=== PATIENT | female | born 1950 | race Caucasian/White ===

== ENCOUNTER 2023-08-20 19:37 | Observation (INO) | payer OTHER ==
[2023-08-20 20:03] VITALS: RESP 18
[2023-08-20 21:01] LABS: HEMATOCRIT 35.6 % (32.4-45.2); HEMOGLOBIN 11.8 G/dL (10.7-15.3); MCH 28.5 pg (25.7-33.7); MCHC 33.3 g/dl (32.0-36.0); MEAN CELL VOLUME 85.5 fl (80-96); MEAN PLT VOLUME 8.8 fl (7.5-11.1); PLATELET COUNT 341.7 10^3/uL (134-434); RBC 4.16 10^6/uL (3.60-5.2); RDW 15.9 % (11.6-15.6); WHITE BLOOD COUNT 10.4 10^3/uL (4.0-10.8)
[2023-08-20 21:11] LABS: ALBUMIN 4.4 g/dl (3.4-5.0); BILIRUBIN,TOTAL 0.2 mg/dl (0.2-1); BLOOD UREA NITROGEN 23.7 mg/dl (7-18); CALCIUM 9.3 mg/dl (8.5-10.1); CREATININE 0.6 mg/dl (0.6-1.3); PHOSPHOROUS 3.73 (2.5-4.9); POTASSIUM 3.9 mmol/L (3.5-5.1); SGOT/AST 15.2 U/L (15-37); TOT PROT 7.4 g/dl (6.4-8.2)
[2023-08-20] MEDS ORDERED: ASPIRIN 325 MG TABLET ONE (23:23)
[2023-08-20] MEDS ORDERED: ASPIRIN 81 MG CHEWABLE TABLETS PO ONE (23:24)
[2023-08-21 04:59] VITALS: BMI 31.7
[2023-08-21] MEDS ORDERED: ATORVASTATIN CA 80 MG TABLET (FP) PO ONE (09:45)
[2023-08-21 14:37] VITALS: BP 115/62; PULSE 68; TEMP 97.7
[2023-08-21] MEDS ORDERED: ACETAMINOPHEN 325 MG TABLET (FP) PO PRN (14:38)
== END 2023-08-21 18:29 | disposition home or self-care (01) ==
LOC: FER 19:37 → FM/S 22:55
PROVIDERS: ADMIT Internal Medicine
DX: G43.109 Migraine with aura, not intractable, without status migrainosus (principal); E78.5 Hyperlipidemia, unspecified; I10 Essential (primary) hypertension; F41.9 Anxiety disorder, unspecified; Z87.891 Personal history of nicotine dependence
CPT/HCPCS: 36415; 70450-TC; 70551-TC; 71046-TC-FY; 80053; 80061; 82550; 83735; 84100; 84443; 84484; 85027; 93005; 97116-GP; 97161-GP; 99285-25; G0378